=== PATIENT | female | born 1995 | race Two or more races ===

== ENCOUNTER 2019-05-15 14:50 | Inpatient (IN) | payer OTHER ==
[~2019-05-15] VITALS: Ht 157.5 cm; Wt 65.3 kg
[2019-05-26] MEDS ORDERED: PRENATAL TABLE1 EACH PO (10:31)
== END 2019-05-28 19:02 | disposition home or self-care (01) | DRG 807 ==
LOC: O/R 15:30 → EDBD 05-24 15:30 → OB/GYN 05-24 15:30 → LDR 05-26 05:42 → OB/GYN 05-26 16:48
PROVIDERS: ADMIT Obstetrics & Gynecology
PROC: 10E0XZZ Delivery of Products of Conception, External Approach (ICD-10-PCS; principal; 2019-05-26)
PROC: 0KQM0ZZ Repair Perineum Muscle, Open Approach (ICD-10-PCS; 2019-05-26)
PROC: 4A1HXCZ Monitoring of Products of Conception, Cardiac Rate, External Approach (ICD-10-PCS; 2019-05-26)
PROC: 3E033VJ Introduction of Other Hormone into Peripheral Vein, Percutaneous Approach (ICD-10-PCS; 2019-05-26)
DX: O70.1 Second degree perineal laceration during delivery (principal); Z37.0 Single live birth; Z3A.40 40 weeks gestation of pregnancy

== ENCOUNTER 2022-01-30 08:05 | Outpatient (CLI) | payer OTHER ==
[~2022-01-30 08:05] MED LIST: PRENATAL TABLE1 EACH PO
== END 2022-01-30 09:15 | disposition home or self-care (01) ==
LOC: PRENATAL 08:05
PROVIDERS: ATTEND Obstetrics & Gynecology Maternal & Fetal Medicine
DX: Z36.0 Encounter for antenatal screening for chromosomal anomalies (principal); Z3A.14 14 weeks gestation of pregnancy

== ENCOUNTER 2022-03-17 08:23 | Outpatient (CLI) | payer OTHER | END 2022-03-17 09:45 | disposition home or self-care (01) | LOC: PRENATAL 08:23 | PROVIDERS: ATTEND Obstetrics & Gynecology Maternal & Fetal Medicine | DX: O35.0XX0 Maternal care for (suspected) central nervous system malformation in fetus, not applicable or unspecified (principal); O35.3XX0 Maternal care for (suspected) damage to fetus from viral disease in mother, not applicable or unspecified; Z3A.21 21 weeks gestation of pregnancy ==

== ENCOUNTER 2022-04-22 20:14 | Emergency (ER) | payer OTHER ==
[~2022-04-22] VITALS: Ht 157.5 cm; Wt 67.1 kg
[2022-04-22] MEDS ORDERED: INTESTINEX680 M1 PO (23:38)
[2022-04-22] MEDS ORDERED: UTIX PO (23:38)
== END 2022-04-23 00:34 ==
LOC: ER 20:14
DX: O26.892 Other specified pregnancy related conditions, second trimester (principal); Z3A.27 27 weeks gestation of pregnancy; N76.0 Acute vaginitis

== ENCOUNTER 2022-07-13 08:43 | Outpatient (CLI) | payer OTHER ==
[~2022-07-13 08:43] MED LIST changes: +INTESTINEX680 M1 PO; +UTIX PO
== END 2022-07-13 10:32 | disposition home or self-care (01) ==
LOC: PRENATAL 08:43
PROVIDERS: ATTEND Obstetrics & Gynecology Maternal & Fetal Medicine
DX: O36.8199 Decreased fetal movements, unspecified trimester, other fetus (principal); Z3A.38 38 weeks gestation of pregnancy

== ENCOUNTER 2022-07-13 11:14 | Inpatient (IN) | payer OTHER ==
[~2022-07-13] VITALS: Ht 157.5 cm; Wt 68.0 kg
== END 2022-07-26 16:54 | disposition home or self-care (01) | DRG 807 ==
LOC: OB/GYN 07-24 06:10 → LDR 07-24 06:10 → OB/GYN 07-24 11:23
PROVIDERS: ADMIT Obstetrics & Gynecology; ATTEND Specialist
PROC: 10E0XZZ Delivery of Products of Conception, External Approach (ICD-10-PCS; principal; 2022-07-24)
PROC: 0KQM0ZZ Repair Perineum Muscle, Open Approach (ICD-10-PCS; 2022-07-24)
PROC: 4A1HXCZ Monitoring of Products of Conception, Cardiac Rate, External Approach (ICD-10-PCS; 2022-07-24)
DX: O70.1 Second degree perineal laceration during delivery (principal); Z37.0 Single live birth; Z3A.39 39 weeks gestation of pregnancy; Z20.822 Contact with and (suspected) exposure to COVID-19

== ENCOUNTER 2023-10-29 11:11 | Outpatient (CLI) | payer OTHER | END 2023-10-29 11:12 | disposition home or self-care (01) | LOC: PRENATAL 11:11 | PROVIDERS: ATTEND Obstetrics & Gynecology Maternal & Fetal Medicine | DX: O36.80X0 Pregnancy with inconclusive fetal viability, not applicable or unspecified (principal); Z36.9 Encounter for antenatal screening, unspecified; Z36.82 Encounter for antenatal screening for nuchal translucency; Z3A.11 11 weeks gestation of pregnancy ==

== ENCOUNTER 2024-03-25 10:12 | Outpatient (CLI) | payer OTHER | END 2024-03-25 10:13 | disposition home or self-care (01) | LOC: PRENATAL 10:12 | PROVIDERS: ATTEND Obstetrics & Gynecology Maternal & Fetal Medicine | DX: O26.843 Uterine size-date discrepancy, third trimester (principal); O36.8130 Decreased fetal movements, third trimester, not applicable or unspecified; Z3A.32 32 weeks gestation of pregnancy ==

== ENCOUNTER 2024-05-06 13:00 | Inpatient (IN) | payer OTHER ==
[~2024-05-06] VITALS: Ht 154.9 cm; Wt 73.5 kg
[2024-05-10] VITALS (7 sets, daily range): BP systolic 103–131; BP diastolic 63–83
[2024-05-10 10:30] LABS: HEMATOCRIT 37.9 % (36.0-45.00); HEMOGLOBIN 12.6 g/dL (12.0-15.00); MEAN CELL VOLUME 87.6 fL (80.00-100.00); MEAN CORPUSCULAR HEMOGLOBIN 29.2 pg (27.00-32.0); MEAN CORPUSCULAR HGB CONC 33.3 g/dl (32.0-36.0); PLATELET COUNT 144 K/uL (150-450); RED BLOOD COUNT 4.33 M/uL (4.00-6.00); URINE APPEARANCE Clear; URINE BILIRRUBIN Negative (NEGATIVE); URINE BLOOD Negative; URINE COLOR Yellow; URINE GLUCOSE Negative (NEGATIVE); URINE KETONE Negative (NEGATIVE); URINE LEUKOCYTE Negative; URINE NITRATE Negative; URINE PROTEIN Negative (NEGATIVE); URINE UROBILINOGEN 0.2 E.U./dl
[2024-05-10] MEDS ORDERED: RINGERS SOLUTION,LACTATED 1,000 ML IV SCH (10:30)
[2024-05-10 10:31] LABS: URINE BACTERIA 23.9 uL (0.0-1933); URINE EPITHELIAL CELLS 3.8 uL (0.0-38.8); URINE RBC 25.9 uL (0.0-20.8); URINE WBC 16.9 uL (0.0-23.2)
[2024-05-10 10:34] LABS: URINE CAST 0.15 uL (0.0-1.40)
[2024-05-10 10:53] LABS: INR 0.94; PARTIAL THROMBOPLASTIN TIME 28.9 SECONDS (22.0-34.0); PROTHROMBIN TIME 10.3 SECONDS (9.0-11.5)
[2024-05-10 10:57] LABS: ALBUMIN 2.8 gm/dL (3.4-5.0); BILIRUBIN TOTAL 0.35 mg/dL (0.3-1.2); CALCIUM 8.7 mg/dL (8.5-10.1); CREATININE SERUM 0.56 mg/dL (0.55-1.02); GFR 129.86; GLOBULINA 3.6 G/DL (2.4-3.5); POTASSIUM 3.62 mEq/L (3.5-5.1); TOTAL PROTEIN 6.4 gm/dL (6.4-8.2)
[2024-05-10] MEDS ORDERED: OXYTOCIN 500 ML IV ONE (11:15)
[2024-05-10] MEDS ORDERED: OXYTOCIN 1,000 ML IV SCH (14:15)
[2024-05-10] MEDS ORDERED: CHLORHEXIDINE GLUCONATE 120 ML BOTTLE TOP SCH (14:15)
[2024-05-10] MEDS ORDERED: ERYTHROMYCIN BASE OPHT 1GM EACH TUBE OP ONE (15:15)
[2024-05-10] MEDS ORDERED: LIDOCAINE HCL 1% 10ML VIAL PERCUT ONE (15:15)
[2024-05-10] MEDS ORDERED: IBUprofen 400 MG TABLET PO SCH (18:00)
[2024-05-11 00:02] VITALS: BP 106/67
[2024-05-11 07:51] LABS: HEMATOCRIT 34.5 % (36.0-45.00); HEMOGLOBIN 11.8 g/dL (12.0-15.00); MEAN CELL VOLUME 87.2 fL (80.00-100.00); MEAN CORPUSCULAR HEMOGLOBIN 29.7 pg (27.00-32.0); MEAN CORPUSCULAR HGB CONC 34.1 g/dl (32.0-36.0); PLATELET COUNT 140 K/uL (150-450); RED BLOOD COUNT 3.96 M/uL (4.00-6.00); RED CELL DISTRIBUTION WIDTH 15.2 % (11.5-14.5)
[2024-05-11 08:46] VITALS: BP 100/67
[2024-05-11 15:45] VITALS: BP 112/76
[2024-05-11 23:49] VITALS: BP 96/61
[2024-05-12 05:22] VITALS: BP 97/61
[2024-05-12 08:02] VITALS: BP 109/71
== END 2024-05-12 11:57 | disposition home or self-care (01) | DRG 807 ==
LOC: LDR 05-10 10:10 → OB/GYN 05-10 10:10 → LDR 05-20 13:00
PROVIDERS: Student in an Organized Health Care Education/Training Program; ADMIT Obstetrics & Gynecology; ATTEND Obstetrics & Gynecology
PROC: 10E0XZZ Delivery of Products of Conception, External Approach (ICD-10-PCS; principal; 2024-05-10)
PROC: 0HQ9XZZ Repair Perineum Skin, External Approach (ICD-10-PCS; 2024-05-10)
PROC: 4A1HXCZ Monitoring of Products of Conception, Cardiac Rate, External Approach (ICD-10-PCS; 2024-05-10)
DX: O70.0 First degree perineal laceration during delivery (principal); Z37.0 Single live birth; Z3A.39 39 weeks gestation of pregnancy; Z20.822 Contact with and (suspected) exposure to COVID-19